=== PATIENT | male | born 1960 | race Caucasian/White ===

== ENCOUNTER 2017-06-14 07:06 | Emergency (ER) | payer MEDICARE ==
[~2017-06-14] VITALS: Ht 170.2 cm; Wt 68.0 kg
[2017-06-14] MEDS ORDERED: NKM (07:17)
[2017-06-14 07:21] VITALS: BP 133/84
[2017-06-14] MEDS ORDERED: TRAMADOL HCL50 MG ORAL (07:29)
[2017-06-14] MEDS ORDERED: KEFLEX500 MG ORAL (07:29)
[2017-06-14] MEDS ORDERED: traMADol 50mg tab ORAL ONE (07:30)
--- NOTE | 2017-06-14 08:26 | Emergency Room Report ---
History of Present Illness General Chief Complaint: Pain Source: Patient Present Illness HPI 56-year-old male presents ED complaining of left inguinal pain times one week. Patient has history of hernia. States it bulges out but he is able to reduce it. Pain is throbbing, 7/10, nonradiating. Denies nausea or vomiting. States he is able to pass flatus. Tolerating by mouth intake. Patient is also complaining of a "staph infection" to his right arm. Denies fevers or chills. Denies any contacts or recent travel. Patient admits to drug use. No other aggravating relieving factors. Denies any other associated symptoms Allergies: Coded Allergies: No Known Allergies (Unverified , 06/14/17) Patient History Past Medical History: COPD Past Surgical History: none Pertinent Family History: none Social History: Reports: drug use, Denies: smoking, alcohol use Immunizations: UTD Reviewed Nursing Documentation: PMH: Agreed, PSxH: Agreed Nursing Documentation-PMH Hx COPD: Yes Review of Systems All Other Systems: negative except mentioned in HPI Physical Exam Vital Signs Date Time Temp Pulse Resp B/P (MAP) Pulse Ox O2 Delivery O2 Flow Rate FiO2 06/14/17 07:09 97.5 101 18 133/84 99 Room Air Sp02 EP Interpretation: reviewed, normal General Appearance: no apparent distress, alert, GCS 15, non-toxic Head: normocephalic, atraumatic Eyes: bilateral eye normal inspection, bilateral eye PERRL ENT: hearing grossly normal, normal pharynx, no angioedema, normal voice Neck: full range of motion, supple/symm/no masses Respiratory: chest non-tender, lungs clear, normal breath sounds, speaking full sentences Cardiovascular #1: regular rate, rhythm, no edema Cardiovascular #2: 2+ carotid (R), 2+ carotid (L), 2+ radial (R), 2+ radial (L) , 2+ dorsalis pedis (R), 2+ dorsalis pedis (L) Gastrointestinal: normal bowel sounds, soft, non-distended, no guarding, no rebound, other - L inguinal hernia. reducible Rectal: deferred Genitourinary: normal inspection, no CVA tenderness Musculoskeletal: back normal, gait/station normal, normal range of motion, non- tender Neurologic: alert, oriented x3, responsive, motor strength/tone normal, sensory intact, speech normal Psychiatric: judgement/insight normal, memory normal, mood/affect normal, no suicidal/homicidal ideation Reflexes: 3+ bicep (R), 3+ bicep (L), 3+ tricep (R), 3+ tricep (L), 3+ knee (R) , 3+ knee (L) Skin: rash - multiple sites of induration, scabbing to RUE. no fluctuance or discharge Lymphatic: no adenopathy Medical Decision Making Diagnostic Impression: Primary Impression: Cellulitis Qualified Codes: L03.113 - Cellulitis of right upper limb Additional Impression: Hernia ER Course Hospital Course 56 [place] to presents ED with "infection" to the R arm. hernia Differential diagnoses include: Cellulitis, dermatitis, insect bite, abscess Clinical course Patient placed on stretcher. After initial history, physical exam reveals a middle aged in no acute distress. Exam there is a left inguinal hernia which is reducible. No signs of induration or incarceration. Reassurance given. Patient did not require emergent surgery. Can be seen as outpatient surgery Patient also has multiple erythematous sites to the right upper extremity with scabbing. Consistent with cellulitis as per likely related to skin popping. Patient has history of drug use Given tramadol for pain in ED Diagnosis -cellulitis, hernia stable and discharged to home with prescription for Tramadol, Keflex. Instructed to followup with PMD, surgery. Instructed return to ED if symptoms recur or worsen Last Vital Signs Date Time Temp Pulse Resp B/P (MAP) Pulse Ox O2 Delivery O2 Flow Rate FiO2 06/14/17 07:21 97.5 18 133/84 99 Room Air 06/14/17 07:09 101 Status: improved Disposition: HOME, SELF-CARE Condition: Stable Scripts Tramadol Hcl* (ULTRAM*) 50 Mg Tablet 50 MG ORAL Q6H Y for For Pain, #20 TAB 0 Refills Prov: JOSELINE HERNANDEZ M.D. 06/14/17 Cephalexin* (KEFLEX*) 500 Mg Capsule 500 MG ORAL Q6H, #28 CAP 0 Refills Prov: JOSELINE HERNANDEZ M.D. 06/14/17 Referrals: NOT CHOSEN IPA/,REFERRING (PCP) Patient Instructions: Hernia, Adult, [id number], Cellulitis, [id number] JOSELINE HERNANDEZ M.D. Jun 14, 2017 08:26
[2017-07-05 19:42] VITALS: BP 133/84
== END 2017-06-14 08:00 | disposition home or self-care (01) ==
LOC: EMR 07:25
DX: K40.90 Unilateral inguinal hernia, without obstruction or gangrene, not specified as recurrent (principal); L03.113 Cellulitis of right upper limb; J44.9 Chronic obstructive pulmonary disease, unspecified
CPT/HCPCS: 99283